=== PATIENT | female | born 1945 | race Two or more races ===

== ENCOUNTER 2024-12-02 16:20 | Observation (INO) | payer OTHER, SELFPAY ==
--- NOTE | 2024-11-28 06:36 | EKG_ITS ---
[facility] Test Date: 2024-11-28 Pat Name: PRATIK AMATO Department: Room: - Gender: Female Ict Sales Assistant: LIV : 1945 Requested By: Kaden Rocha Order Number: [id number] Reading MD: Kaden Rocha Measurements Intervals [place] Rate: 59 P: 51 CT: 191 QRS: 44 QRSD: 82 T: 67 QT: 394 QTc: 392 Interpretive Statements SINUS BRADYCARDIA MODERATE ST DEPRESSION [0.05+ mV ST DEPRESSION] No previous ECG available for comparison /store/S0/[id number]/[id number].pdf
[2024-11-28 09:48] VITALS: BMI 22.2
[2024-11-28 10:23] LABS: Collection Type, Urine Clean Catch; Squamous Epithelial Cell,Urine 0 /hpf (0-5)
[2024-11-28 11:18] LABS: Basophils # (Auto) 0.1 Thou/mm3 (0.0-0.2); Basophils % (Auto) 1 % (0-2.5); Eosinophils # (Auto) 0.1 Thou/mm3 (0.0-0.5); Eosinophils % (Auto) 1 % (0-10); Hematocrit 32.6 % (36.0-46.0); Hemoglobin 11.1 g/dL (12.0-16.0); Immature Granulocytes Auto 0.03 Thou/mm3 (0.00-0.00); Lymphocytes # (Auto) 1.8 Thou/mm3 (1.0-4.8); Lymphocytes % (Auto) 27 % (10-50); Mean Corpuscular HGB Conc 34.0 g/dl (31.0-37.0); Mean Corpuscular Hemoglobin 32.0 pg (25.0-35.0); Mean Corpuscular Volume 94 fL (80-100); Monocytes # (Auto) 0.7 Thou/mm3 (0.0-0.8); Monocytes % (Auto) 10 % (0-12); Neutrophils # (Auto) 4.2 Thou/mm3 (1.8-7.7); Neutrophils % (Auto) 62 % (37-80); Nucleated Red Blood Cell # 0.00 Thou/mm3 (0.00-0.00); Nucleated Red Blood Cell % 0 /100 WBC (0); Platelet Count 316 Thou/mm3 (140-440); RDW Standard Deviation 48.4 fL (36.4-46.3); Red Blood Count 3.47 Miln/mm3 (4.00-5.20); White Blood Count 6.9 Thou/mm3 (3.6-11.0)
[2024-11-28 11:29] LABS: Alanine Aminotransferase 14 U/L (10-49); Albumin, Serum 5.1 gm/dL (3.4-4.8); Albumin/Globulin Ratio 1.7 (1.2-2.2); Alkaline Phosphatase 65 U/L (46-116); Anion Gap 10 (7-16); Aspartate Amino Transferase 24 U/L (0-34); BUN/Creatinine Ratio 26 Ratio (12-20); Bilirubin,Total 0.8 mg/dL (0.3-1.2); Blood Urea Nitrogen 26 mg/dL (9-23); Calcium 10.0 mg/dL (8.3-10.6); Calcium (Corrected) 10.0 mg/dL (8.5-10.1); Carbon Dioxide 26.5 mMol/L (20.0-31.0); Chloride 98 mMol/L (98-107); Creatinine (Component) 1.0 mg/dL (0.6-1.3); Estimated Creatinine Clearance 28.7 mL/min (>60); Globulin 3.0 gm/dL (2.3-3.5); Glucose 98 mg/dL (74-106); Osmolality,Calculated 272 (275-295); Partial Thromboplastin Time 28.4 Seconds (22.0-36.0); Potassium 3.7 mMol/L (3.4-5.1); Sodium 134 mMol/L (136-145); Total Protein 8.1 gm/dL (5.7-8.2); eGFR 58 See Note
[2024-11-28 11:39] LABS: Bilirubin,Urine Negative (Negative); Blood,Urine Trace (Negative); Clarity,Urine Clear (Clear/Hazy); Color,Urine Colorless (Lt Yel-Yel); Glucose, Urine Negative (Negative); Ketones,Urine Negative (Negative); Leukocyte Esterase,Urine Negative (Negative); Nitrite,Urine Negative (Negative); PH,Urine 6.5 (5.0-7.0); Protein,Urine Negative (Neg - Trace); RBC,Urine 1 /hpf (0-3); Specific Gravity,Urine 1.007 (1.001-1.035); Urobilinogen,Urine Negative mg/dL (0.0-1.0); WBC,Urine 1 /hpf (0-5)
[2024-12-02] VITALS (20 sets, daily range): BP systolic 114–152; BP diastolic 51–73; PULSE 57–81; RESP 12–20; TEMP 36–36.6; O2SAT 94–100; BMI 22.0; BMI 22.1
--- NOTE | 2024-12-02 11:10 | ESOP_ITS ---
Date of Procedure 12/02/24 Pre Op Diagnosis Mass right lobe of the thyroid gland rule out cancer. Patient with history of left thyroid lobectomy 60 years ago. Post Op Diagnosis Benign thyroid nodule as per rapid frozen section. Procedure Right thyroid lobectomy rapid frozen section. On 12/02/2024 Findings This patient had significant amount of scar tissue around the thyroid as well as in the subcutaneous tissue from previous thyroid lobectomy. There was a firm to hard mass in the right lobe of the thyroid gland with mature collagenous scar tissue. The rapid frozen section was done by the pathologist who said that he did not see any malignant tumor at this time. There was significant amount of oozing from the thyroid bed because of the chronic scar tissue and inflammation and adhesions of the thyroid gland with the surrounding soft tissue. The recurrent laryngeal nerve was identified and it was protected. Procedure Description Patient was examined in the preop area. Site and site were marked. Procedure was discussed with the patient in detail. The risk benefits alternatives were discussed with the patient and informed consent was obtained. The risks include bleeding infection recurrent laryngeal nerve injury and hypoparathyroidism along with anesthesia related risks. The patient was brought to the operating room and placed on the operating table in supine position. General anesthesia was administered in a satisfactory manner. IV antibiotics were given to the patient. Local anesthesia 0.25% Marcaine with epinephrine was used as an adjunct. Curvilinear transverse incision is made in the neck 2 fingerbreadths above the sternal notch through the previous skin scar. This was deepened through the layers of skin subcutaneous tissue and platysma. The upper and lower flaps were developed below the platysma. The deep cervical fascia was incised in the midline. The flat muscles were retracted on the side. Dissection was carried out between the right lobe of the thyroid and the flat muscles. Hemostasis was achieved. Branches of the inferior thyroid artery were identified and ligated with harmonic ultrasonic gucci very close to the thyroid and divided. The blood supply to the parathyroid gland was protected. The lobe was rotated anteriorly. Middle thyroid vessels were identified and they were divided with harmonic ultrasonic gucci close to the thyroid. There were several small arteries entering the thyroid likely from the previous inflammation. These were sequentially divided with the harmonic ultrasonic gucci very close to the thyroid. The recurrent laryngeal nerve was identified and was protected. The Faulkner's ligament was examined and the superior thyroid vessels were identified and ligated and divided with harmonic ultrasonic gucci. Now the lobe is dissected and from the anterior wall of the trachea. Hemostasis was achieved. The isthmus was from the trachea. The specimen was removed and then oriented anatomically for the pathologist. Rapid frozen section was carried out and the result was inconclusive and it was likely a benign nodule in the right lobe of the thyroid gland. The final diagnosis is pending on permanent section. There was further oozing from the scarred surrounding tissue around the thyroid in the cavity this required Surgicel powder and Surgicel for control of the bleeding. After the hemostasis was achieved a Jm-Benson 10 Togolese round was placed in the right neck and sutured to the skin using 2-0 nylon suture. The deep cervical fascia was closed in midline using 4-0 Vicryl continuous suture. The platysma was approximated by 4-0 Vicryl interrupted sutures. The skin was approximated by fredy. Hinsdale's dressing was applied. Patient tolerated the procedure very well. Complications none. At the time of extubating anesthesiologist examined vocal cords and they were moving normally. Anesthesia GETA Drains Jm-Benson 10 Togolese round Pathology / specimen Other (Right lobe of the thyroid gland) Estimated Blood Loss 10 Condition Stable Disposition PACU Surgeon Kaden Rocha MD Surgical Staff Operation Date: 12/02/24 08:30 Case Staff Anesthesiologist: Zac Valera RN First Assistant: Violetta Becker remote sensing technologist Marc BUCKLEY model and mold maker plaster
--- NOTE | 2024-12-02 11:15 | SUR.PHASEI ---
1115: Pt. wakes to name then drifts back to sleep, vitals stable, breathing unlabored, no complaint of pain or nausea, dressing to neck CDI, LUIS CARLOS drain in place draining serosanguinous flulid, report received from Kwan BUCKLEY and MD Valera.
--- NOTE | 2024-12-02 11:20 | SUR.PHASEI ---
1120: Report given to shreyas BUCKLEY to resume care.
--- NOTE | 2024-12-02 11:20 | SUR.PHASEI ---
Received report on pt. s/p surgery from Kamla BUCKLEY. Pt. is resting, eyes closed, responds to verbal commands, VSS, dressing to neck CDI, marcus drain in place.
[2024-12-02] MEDS: fentaNYL CIT INJ 50 mCg/ML AMP 2ML 25 MCG IVP ×6 (11:35→16:04)
--- NOTE | 2024-12-02 11:54 | SUR.PHASEI ---
1154: Report received from Cassy BUCKLEY. Pt. AAOx4, vitals stable, breathing unlabored, dressing to neck CDI, LUIS CARLOS drain in place, no new changes.
[2024-12-02] MEDS: RINGERS LACTATED 1000 ML 1,000 ML 60 ML IV (13:10)
--- NOTE | 2024-12-02 16:02 | PC.NURSE ---
RECEIVED REPORT FROM BEKAH BUCKLEY, [facility].
--- NOTE | 2024-12-02 16:20 | SUR.PHASEII ---
1620: Pt. AAOx4, vitals stable, breathing unlabored, no complaint of pain or nausea, dressing to neck CDI, LUIS CARLOS Drain in place, pt. tolerated sips of water well, gave report to Eufemia BUCKLEY prior to transfer to room 366. Pt. transferred with all personal belongings. family aware of transfer to room.
--- NOTE | 2024-12-02 16:30 | PC.NURSE ---
PATIENT IS ALERT AND ORIENTED X3 DENIES PAIN SHE IS ACCOMPANIED BY SISTER HALLIE.
[2024-12-02] MEDS: ATORVASTATIN CALCIUM 20 MG TABLET 40 MG PO (21:09)
[2024-12-02] MEDS: LOSARTAN POTASSIUM 25 MG TABLET 50 MG PO (21:10)
[2024-12-03] VITALS: BP 112/53; PULSE 67; RESP 17; TEMP 36.3; O2SAT 99
[2024-12-03 04:00] VITALS: BP 117/59; PULSE 68; RESP 17; TEMP 36.3; O2SAT 100
[2024-12-03] MEDS: LEVOTHYROXINE SODIUM 25 MCG TABLET 50 MCG PO (05:27)
[2024-12-03 08:00] VITALS: BP 123/59; PULSE 69; RESP 18; TEMP 36.4; O2SAT 100
[2024-12-03 08:14] VITALS: BP 117/59; PULSE 68
[2024-12-03] MEDS: CHOLECALCIFEROL (Vitamin D3) 1,000 IU TABLET 5000 IU PO (08:14)
[2024-12-03 11:01] VITALS: BMI 22.2
--- NOTE | 2024-12-03 11:37 | PC.SS ---
Kayy Law is a 79-year-old female admitted to [facility] for RT Thyroid Lobectoy. SS conducted bedside contact with the patient to complete initial assessment and to discuss discharge planning. Role and reason explained. Patient confirmed demographic information. Patient identifies sister Belinda Law [phone] as her surrogate decision maker. Pt states she is able to complete all ADL?s, no need for DME. Pts PCP is Dr. Blum. Pharmacy of choice is [facility] on [address] in [place] . Discharge options discussed and the pt wishes to return home.? Family will provide transportation upon DC. No further intervention required at this time, social services specialist would be available to address any further concerns. DC Plan: Home Contact: Belinda Beth Address: Confirmed on face sheet PCP: Viktoria
[2024-12-03 12:00] VITALS: BP 108/47; PULSE 75; RESP 18; TEMP 36.3; O2SAT 97
--- NOTE | 2024-12-03 13:01 | ESDS_ITS ---
Planned Discharge Date 12/03/24 DS: Providers Provider Date of admission: 12/02/24 16:20 Primary care physician: Sheree Blum Admitting Provider: Kaden Rocha MD Attending Provider on Admission: Kaden Rocha MD Consults: 12/02/24 16:54 [facility] Referral - Knowledge Deficit Routine Comment: Positive screening for knowledge deficit needs. 12/02/24 16:55 Referral Registered Dietitian Routine Comment: Attending Provider on DC: Kaden Rocha MD Discharging Provider: Kaden Rocha MD Diagnosis Discharge Diagnosis (1) S/P thyroidectomy: Status: Acute (2) Postoperative pain: Status: Acute (3) Thyroid mass: Status: Acute Problem List Completed Was Problem List Reviewed/Reconciled?: Yes Hospital Course Patient was brought to the hospital for a right thyroid lobectomy for a mass in the right thyroid which had inconclusive biopsies. She had a previous left thyroid lobectomy when she was 18 years old. She underwent a right thyroid lobectomy without any events and there was a frozen section done that did not identify any particular malignant process. The final pathology is pending. At the end of the operation and the anesthesiologist looked at the vocal cords they are moving equally and well. Postoperatively she had a drain which stopped draining on the night of the procedure and it was removed next day. Her incision is healing normally without any infection collection of fluid. She has minimal pain and now she is being discharged home to be followed in the office for removal of the fredy. I have increased her Synthroid from 50 mcg to 75 mcg because now she has total thyroidectomy. The dose is dependent on ve rification of the serum thyroid function test. This will be carried out in 30 days. Her condition is markedly improved. Status at Discharge Functional status at discharge: independent ambulation Exam Vital Signs Temp Pulse Resp BP Pulse Ox O2 Del Method O2 Flow Rate 97.4 F 75 18 108/47 L 97 Room Air 4 12/03/24 12:00 12/03/24 12:12/03/24 12:12/03/24 12:12/03/24 12:12/03/24 12:12/02/24 11:35 Narrative Exam The drain is removed from his neck and fredy are in place there is no drainage the wound looks good there is no infection cardiopulmonary examination is normal abdomen is soft and nontender extremities are unremarkable. Patient is eating her liquid lunch without any difficulty or dysphagia. Her voice is little bit hoarse but is expected after general anesthesia with endocardial tracheal intubation. At the end of the procedure the anesthesiologist looked at the vocal cords were moving normally. Discharge Plan Plan Patient Disposition: HOME (Self Care) Disposition Comment: Follow-up in the office in 10 days Prescriptions/Referrals Prescriptions/Med Rec: New hydrocodone-acetaminophen 10-325 mg tablet 1 tab PO Q6H MDD 4 PRN (Reason: pain) Qty: 14 0RF levothyroxine [Synthroid] 75 mcg tablet 75 mcg PO QDAY MDD 1 Qty: 90 0RF Continued vitamin Z39-miqhz acid 1-0.8 mg tablet 1 tab PO DAILY chlorthalidone 25 mg tablet 25 mg PO DAILY Patient Comments: TAKE 1 TABLET BY MOUTH EVERY DAY amlodipine 2.5 mg tablet 2.5 mg PO DAILY Patient Comments: TAKE 1 TABLET BY MOUTH EVERY DAY omega 1-rny-fxr-fish oil [Fish Oil] 1,200 (144-216) mg capsule 1 cap PO DAILY cholecalciferol (vitamin D3) [Vitamin D3] 125 mcg (5,000 unit) tablet 125 mcg PO QDAY losartan 50 mg tablet 50 mg PO DAILY Patient Comments: TAKE 1 TABLET BY MOUTH EVERY DAY psyllium husk [Daily Fiber] 0.4 gram capsule 0.4 g PO QDAY nitroglycerin 0.3 mg tablet, sublingual 0.03 mg BUCCAL [id number] PRN (Reason: chest pain) Patient Comments: PLEASE SEE ATTACHED FOR DETAILED DIRECTIONS rosuvastatin 10 mg tablet 10 mg PO DAILY Discontinued levothyroxine 50 mcg tablet 50 mcg PO DAILY Referrals: Sheree Blum [Primary Care Provider] - Patient/Caregiver Discharge Instructions Other Discharge Activity Instructions:: May take shower keep pressure dry afterwards. Follow-up in the office in 10 days Other Discharge Diet Instructions: Liquid diet advance to regular as tolerated Print Language: Norwegian Stand Alone Forms: Kylie Award Info., Patient Portal Info Letter, Work/Release Restrictions Discharge Order Discharge Orders: Discharge (Routine); Ordered 12/03/24 Ordered By: Kaden Rocha PROCEDURES: Procedure Date 12/02/24 Procedures Right thyroid lobectomy rapid frozen section. On 12/02/2024
--- NOTE | 2024-12-03 13:15 | PC.NURSE ---
removed LUIS CARLOS drain per Dr. Rocha's instruction
== END 2024-12-03 13:40 | disposition home or self-care (01) ==
LOC: S3NX 16:44
PROVIDERS: Admitting Provider Specialist; PCP Family Medicine; Referring Provider Specialist; Visit Provider Specialist
PROC: (CPT 60220; principal; 2024-12-02 08:30)
DX: E04.1 Nontoxic single thyroid nodule (principal); E06.5 Other chronic thyroiditis; Z01.810 Encounter for preprocedural cardiovascular examination
CPT/HCPCS: 60220; 36415; 80053; 81001; 85025; 85730; 93005; 96374; 96376; A4217; A4649; G0378; J0131; J0461; J2250; J2371; J2704; J3010; J3490; J7120; A9270